=== PATIENT | female | born 1950 | race Caucasian/White ===

== ENCOUNTER → 2019-06-02 08:23 | Outpatient (CLI) | payer MEDICARE, BC ==
--- NOTE | 2019-06-07 18:38 | ST ---
PATIENT:SIERRA ALLAN MEDICAL RECORD: [id number] SEX: F LOCATION:[facility] ORDER #: ADMISSION DATE: 06/02/19 AGE OF PATIENT: 69 REFERRING PHYSICIAN: INTERPRETING PHYSICIAN: KALANI SILVER MD DATE OF SERVICE: 06/02/2019 PROCEDURE: Nuclear Stress Test INDICATION: Angina, abnormal ECG, shortness of breath, dyspnea on exertion. She was exercised on standard Lexiscan protocol with 26 mCi of sestamibi injected at peak stress, 9 mCi used previously for rest images. FINDINGS: Gated SPECT reveals preserved ejection fraction at 73% with good wall motion and thickening and brightening throughout all segments. SPECT imaging Cardiolite was used as myocardial fusion agent. There is homogeneous uptake throughout all segments at rest and stress with no evidence of inducible ischemia or previous infarction. OVERALL IMPRESSION: 1. This is a normal nuclear stress test with no evidence of inducible ischemia or previous infarction. 2. Gated SPECT reveals a preserved ejection fraction at 73%. In this patient with ongoing symptomatology, the current scan does not suggest the presence of hemodynamically significant coronary artery disease. Evaluate noncardiac etiology of chest pain. TRANSINT:[id number] Voice Confirmation ID: [id number] DOCUMENT ID: [id number] KALANI SILVER MD at 1838 CC: FRANDY MCCLURE MD [id number] DICTATION DATE: 06/03/19 1533 MERCHANT BANKER: 06/04/19 0014 DEP CLI 06/02/19 [facility] [address] [place] [address]
== END | disposition home or self-care (01) ==
LOC: D.HCCARDIO 08:23
PROVIDERS: ATTEND Internal Medicine Interventional Cardiology
DX: I20.9 Angina pectoris, unspecified (principal)

== ENCOUNTER → 2019-06-10 12:40 | Outpatient (CLI) | payer MEDICARE, BC ==
--- NOTE | 2019-06-11 16:51 | EC ---
PATIENT:SIERRA ALLAN DATE OF SERVICE: 06/10/19 SEX: F MEDICAL RECORD: [id number] DATE OF : 50 LOCATION:[facility] AGE OF PATIENT: 69 ADMISSION DATE: 06/10/19 REFERRING PHYSICIAN: INTERPRETING PHYSICIAN: KALANI MALDONADO MD ECHOCARDIOGRAM REPORT ECHO CHARGES 4 ECHO COMPLETE Date: 06/10/19 CLINICAL DIAGNOSIS: DYSPNEA ECHOCARDIOGRAPHIC MEASUREMENTS (adult normal given) AC root (d.<3.7cm) 3.6 cm LV Septum d (<1.2 cm> 1.3 cm Valve Excursion 1.3 cm LV Septum (systole) 1.5 cm Left Atria (s.<4.0cm> 4.4 cm LVPW d(<1.2cm) 1.4 cm RV (d.<2.3cm) 4.1 cm LVPW (sytole) 1.6 cm LV diastole(<5.6CM) 4.8 cm MV E-F(>70mm/sec) cm LV systole 3.3 cm LVOT Diameter 2.0 cm MV exc.(>10mm) 1.3 cm Est.ejection fraction (50-75%) % DOPPLER: LVIT cm/sec A 86.0 cm/sec E 76.0 cm/sec LA cm/sec RVSP 33 mmHg LVOT 90 cm/sec AOP1/2T 772 m/s Asc. Ao 223 cm/sec RVOT 100 cm/sec RA cm/sec PA 186 cm/sec AV Gradient Peak 19.98mmHg AV Mean 12.13mmHg AV Area 1.3 cm MV Gradient Peak 3.37 mmHg MV Mean 1.21 mmHg MV Area cm COMMENTS: DELICIA TRACED AT 1.6CM2 Coater: 2 CHEPE RITCHIE Drying And Winding Supervisor: 1 Dr. Maldonado TAPE# PACS Pericardial Effusion N DATE OF SERVICE: ECHOCARDIOGRAM FINDINGS: 1. Left ventricular chamber size is within normal limits. Left ventricular systolic function is normal. Overall ejection fraction estimated at 65%. 2. Left atrium is enlarged at 4.4 cm. Right atrium and right ventricular chamber sizes are as well mildly dilated. 3. Valvular structures: Aortic valve demonstrates mild calcific aortic ECHOCARDIOGRAM REPORT [id number] SIERRA ALLAN stenosis, valve area calculates to 1.3 cm-squared and has a gradient of 19-mm across the valve. The remaining valvular structures have normal structure and motion. 4. Doppler interrogation elsewise reveals mild aortic insufficiency, mild mitral regurgitation, mild tricuspid regurgitation. No other valvular insufficiency or stenosis. Pulmonary systolic pressure is estimated at 33 mmHg. 5. No evidence of pericardial effusion or left ventricular thrombus. TRANSINT:[id number] Voice Confirmation ID: [id number] DOCUMENT ID: [id number] KALANI MALDONADO MD at 1651 CC: [id number] DICTATION DATE: 06/11/19 1044 RN LVN: 06/11/19 1101 DEP CLI 06/10/19 [facility] [address] [place] [address]
== END | disposition home or self-care (01) ==
LOC: D.HCCARDIO 12:30
PROVIDERS: ATTEND Internal Medicine Interventional Cardiology
DX: R06.02 Shortness of breath (principal)

== ENCOUNTER → 2019-09-16 10:43 | Outpatient (CLI) | payer MEDICARE, BC ==
--- NOTE | 2019-09-21 11:41 | EC ---
PATIENT:SIERRA ALLAN DATE OF SERVICE: 09/16/19 SEX: F MEDICAL RECORD: [id number] DATE OF : 50 [facility] AGE OF PATIENT: 69 ADMISSION DATE: 09/16/19 REFERRING PHYSICIAN: INTERPRETING PHYSICIAN: KALANI MALDONADO MD ECHOCARDIOGRAM REPORT ECHO CHARGES 4 ECHO COMPLETE Date: 09/16/19 CLINICAL DIAGNOSIS: SOB/CHEST PAIN/ ASSESS PERICARDIAL EFFUSION ECHOCARDIOGRAPHIC MEASUREMENTS (adult normal given) AC root (d.<3.7cm) 3.1 cm LV Septum d (<1.2 cm> 1.2 cm Valve Excursion 1.3 cm LV Septum (systole) 1.3 cm Left Atria (s.<4.0cm> 3.4 cm LVPW d(<1.2cm) 1.3 cm RV (d.<2.3cm) 3.5 cm LVPW (sytole) 1.5 cm LV diastole(<5.6CM) 4.5 cm MV E-F(>70mm/sec) cm LV systole 3.3 cm LVOT Diameter 1.5 cm MV exc.(>10mm) 1.4 cm Est.ejection fraction (50-75%) % DOPPLER: LVIT cm/sec A 65.0 cm/sec E 73.0 cm/sec LA cm/sec RVSP 29 mmHg LVOT 138 cm/sec AOP1/2T 498 m/s Asc. Ao 232 cm/sec RVOT 100 cm/sec RA cm/sec PA 169 cm/sec AV Gradient Peak 21.47mmHg AV Mean 11.94mmHg AV Area 1.5 cm MV Gradient Peak 5.24 mmHg MV Mean 2.29 mmHg MV Area cm COMMENTS: DELICIA TRACED AT 1.1CM2 [employer] Architect: 2 CHEPE RITCHIE Sales Development Associate: 1 Dr. Maldonado TAPE# PACS Pericardial Effusion N DATE OF SERVICE: FINDINGS: 1. Left ventricular chamber size is within normal limits. Left ventricular systolic function is normal. Overall ejection fraction estimated at 60%. 2. Left atrium, right atrium, and right ventricular chamber sizes are within normal limits. 3. Valvular structures: Aortic valve demonstrates mild calcific aortic stenosis, valve area calculates to 1.1 cm-squared with a gradient of 21 mm across the valve. The remaining valvular structures have normal structure and ECHOCARDIOGRAM REPORT [id number] SIERRA ALLAN. 4. Doppler interrogation elsewise reveals [id number] mitral regurgitation, mild tricuspid regurgitation, no other valvular insufficiency or stenosis. Pulmonary systolic pressure is normal, estimated at 29 mmHg. 5. No evidence of pericardial effusion or left ventricular thrombus. TRANSINT:[id number] Voice Confirmation ID: [id number] DOCUMENT ID: [id number] KALANI MALDONADO MD at 1141 CC: [id number] DICTATION DATE: 09/17/19 1101 CUSTODIAN MANAGER: 09/17/19 1108 DEP CLI 09/16/19 [place] [id number] [place] [id number]
== END | disposition home or self-care (01) ==
LOC: D.HCCECHO 10:43
PROVIDERS: ATTEND Internal Medicine Interventional Cardiology
DX: R06.02 Shortness of breath (principal)